=== PATIENT | female | born 1970 | race Caucasian/White ===

== ENCOUNTER → 2016-04-02 | Outpatient (CLI) | payer BC ==
[~2016-04-02] MED LIST: OXYB5TAB74 PO; OXYC-57 PO
== END | disposition home or self-care (01) ==
LOC: C.PAPS 08:42
PROVIDERS: ATTEND Obstetrics & Gynecology
DX: Z01.419 Encounter for gynecological examination (general) (routine) without abnormal findings (principal)

== ENCOUNTER → 2016-07-28 | Outpatient (CLI) | payer BC ==
[~2016-07-28] MED LIST changes: +DTR/5 PO; -OXYB5TAB74 PO; -OXYC-57 PO
--- NOTE | 2016-07-28 16:06 | MAMMOGRAPHY REPORT ---
BILATERAL DIGITAL SCREENING MAMMOGRAM TOMOSYNTHESIS WITH CAD: 07/28/2016 CLINICAL HISTORY: Routine screening. Patient has no complaints. TECHNIQUE: Breast tomosynthesis in addition to standard 2D mammography was performed. Current study was also evaluated with a Computer Aided Detection (CAD) system. COMPARISON: Comparison is made to exams dated: 07/29/2015 ultrasound, 07/29/2015 mammogram, 07/19/2015 m ammogram, 07/17/2014 mammogram, 06/06/2013 mammogram, and 03/30/2012 mammogram - [facility] nter. BREAST COMPOSITION: There are scattered areas of fibroglandular density in both breasts. FINDINGS: There is a stable metallic biopsy marker in the upper outer anterior right breast, at the s ite of benign stereotactic biopsy. No suspicious spiculated or irregular mass, architectural distort ion or cluster of new suspicious microcalcifications is seen. IMPRESSION: ACR BI-RADS CATEGORY 1: NEGATIVE There is no mammographic evidence of malignancy. A 1 year screening mammogram is recommended. The pa tient will receive written notification of the results. Approximately 10% of breast cancers are not detected with mammography. A negative mammographic report should not delay biopsy if a clinically suggestive mass is present. Lary La M.D. ay/:07/28/2016 15:07:54 Real Estate Officer: Ashly GARCIA(Joshua)(M), [facility] letter sent: Normal 1/2 BI-RADS Code: ACR BI-RADS Category 1: Negative
== END | disposition home or self-care (01) ==
LOC: C.MAMM 09:13
PROVIDERS: ATTEND Obstetrics & Gynecology
DX: Z12.31 Encounter for screening mammogram for malignant neoplasm of breast (principal)

== ENCOUNTER → 2017-01-18 | Outpatient (CLI) | payer BC ==
--- NOTE | 2017-01-18 14:26 | DIAGNOSTIC IMAGING REPORT ---
KUB CLINICAL HISTORY: Nephrolithiasis. FINDINGS: 2 AP supine abdominal radiographs are compared to study dated 12/10/2015. There are 2 punctate calculi projecting over the left kidney and a single punctate calculus projecting over the right kidney. These are similar to previous. There is no radiographic evidence of ureteral stone. A tiny phlebolith is present in the left pelvis. No bowel obstruction is seen. The bony structures appear intact. IMPRESSION: Punctate bilateral nonobstructing renal calculi are similar to the 2016 examination. Electronically signed by: Garrison Alvarado M.D. 01/18/2017 2:24 PM Dictated Date/Time: 01/18/2017 2:23 PM
== END | disposition home or self-care (01) ==
LOC: C.RAD 12:23
PROVIDERS: ATTEND Urology
DX: N20.0 Calculus of kidney (principal)

== ENCOUNTER → 2017-04-09 | Outpatient (CLI) | payer BC | END | disposition home or self-care (01) | LOC: C.PAPS 15:33 | PROVIDERS: ATTEND Obstetrics & Gynecology | DX: Z12.4 Encounter for screening for malignant neoplasm of cervix (principal) ==

== ENCOUNTER → 2017-06-30 | Outpatient (CLI) | payer BC ==
--- NOTE | 2017-06-30 11:59 | DIAGNOSTIC IMAGING REPORT ---
KUB CLINICAL HISTORY: R10.9 NEPHROLITHIASIS. RIGHT SIDED PAIN. COMPARISON STUDY: 01/18/2017 FINDINGS: 2 punctate left renal calculi and one punctate right renal calculus are visualized. There is no pathologic bowel dilatation. No calcifications along the course of either ureter are visualized. IMPRESSION: Bilateral punctate nonobstructing renal calculi. No evidence of pathologic bowel dilatation. Electronically signed by: Robi Viramontes M.D. 06/30/2017 11:58 AM Dictated Date/Time: 06/30/2017 11:57 AM
== END | disposition home or self-care (01) ==
LOC: C.RAD 11:10
PROVIDERS: ATTEND Nurse Practitioner Family
DX: N20.0 Calculus of kidney (principal)

== ENCOUNTER → 2017-09-20 | Outpatient (CLI) | payer BC ==
--- NOTE | 2017-09-21 14:44 | MAMMOGRAPHY REPORT ---
BILATERAL DIGITAL SCREENING MAMMOGRAM TOMOSYNTHESIS WITH CAD: 09/20/2017 CLINICAL HISTORY: Routine screening examination. TECHNIQUE: The study was acquired using full field digital technology and interpreted from soft copy. Breast tomosynthesis in addition to standard 2D mammography was performed. Current study was also ev aluated with a Computer Aided Detection (CAD) system. COMPARISON: Comparison is made to exams dated: 07/28/2016 mammogram, 02/12/2016 mammogram, 01/28/2016 mammogram, 07/29/2015 mammogram, 07/19/2015 mammogram, and 07/17/2014 mammogram - [facility] enter. BREAST COMPOSITION: There are scattered areas of fibroglandular density in both breasts. FINDINGS: There is a stable metallic biopsy marker clip in the upper outer anterior right breast. No new suspicious mass, architectural distortion or cluster of microcalcifications is seen. IMPRESSION: ACR BI-RADS CATEGORY 1: NEGATIVE There is no mammographic evidence of malignancy. A 1 year screening mammogram is recommended.( [id number]) The patient will receive written notification of the results. Some breast cancers are not detected with mammography. A negative mammographic report should not juhi y biopsy if a clinically suggestive mass is present. Lary La M.D. ay/:09/20/2017 15:35:57 Tier Lift Truck Operator: RT Yvette(Joshua)(M), [facility] letter sent: Normal 1/2 BI-RADS Code: ACR BI-RADS Category 1: Negative
== END | disposition home or self-care (01) ==
LOC: C.MAMM 15:11
PROVIDERS: ATTEND Obstetrics & Gynecology
DX: Z12.31 Encounter for screening mammogram for malignant neoplasm of breast (principal)